=== PATIENT | female | born 1950 | race Caucasian/White ===

== ENCOUNTER 2020-05-16 17:03 | Emergency (ER) | payer MEDICARE, SELFPAY ==
--- NOTE | 2020-05-16 17:17 | XRR_ITS ---
PROCEDURE INFORMATION: Exam: XR Chest, 1 View Exam date and time: 05/16/2020 6:58 PM Age: 69 years old Clinical indication: Condition or disease; Lung condition and disease; Asthma; Severity not specified; Shortness of breath; Additional info: Asthma attack TECHNIQUE: Imaging protocol: XR of the chest Views: 1 view. COMPARISON: CR Chest 2 views* [id number] 09/29/2014 1:06 PM FINDINGS: Lungs: The lungs are hyperinflated. No focal peripheral lung consolidation, air bronchogram formation, or silhouette sign. Pleural space: No pleural effusion or pneumothorax. Heart/Mediastinum: The cardiac silhouette is not enlarged. The mediastinal contours are normal. Bones/joints: No acute osseous abnormality. Soft tissues: There is a left epicardial fat pad. XR/XR chest 1V portable [id number] IMPRESSION: No pneumonia.
[2020-05-16 17:51] VITALS: BP 152/90; PULSE 98; RESP 18; TEMP 36.3; O2SAT 100; BMI 18.3
--- NOTE | 2020-05-16 19:07 | ED_ITS ---
HPI - Asthma General: Chief Complaint: Shortness of Breath/Dyspnea Stated Complaint: asthma attack Time Seen by Provider: 05/16/20 19:07 History of Present Illness: HPI Narrative: Patient complains about to have an asthma attack earlier albuterol inhaler did help patient did go to work and then she had another attack albuterol inhaler did help again but now she is got shakiness no known present triggers MD complaint: asthma attack Onset (ago): hour(s) Severity: mild Context: none known Associated symptoms: Reports other (Shakiness); Deny chest pain, fever(s), hemoptysis, non-productive cough or productive cough Asthma History: adult onset Treatments Prior to Arrival: inhaled bronchodilator and inhaled steroid Review of Systems Const: Denies: fever(s), chills or body aches Eyes: Denies: change in vision or blurry vision ENMT: Denies: throat pain or nasal congestion Card: Denies: chest pain or dyspnea on exertion Resp: Reports: other (Asthma attack that responded to bronchodilator); Denies: dyspnea, productive cough, non-productive cough, wheezing, pain on inspiration, hemoptysis or chest congestion GI: Denies: abdominal pain, nausea or vomiting Musc: Denies: extremity pain Skin/Breast: Denies: rash Neuro: Denies: headache(s) Psych: Denies: anxiety or depression Walter/Lymph: Denies: easy bruising PFSH ED PFSH: Medical History (Updated 05/16/20 @ 19:07 by ÁLVARO Smart) Asthma Migraine Surgical History Hx of tubal ligation Family History Father , 82 Family history of premature coronary artery disease Mother , 62 Lung disease Social History (Updated 05/16/20 @ 17:55 by Devon Mendoza RN) Smoking and tobacco status: never smoked Second hand smoke exposure: No Alcohol intake: never Substance/Drug Use: never Lives independently: Yes Marital status: / Current occupational status: employed Current occupation: [employer] History of recent travel: No Current gender identity: Female Physical Exam Narrative: EXAM NARRATIVE: Does have some shakiness most likely related to the inhaled bronchodilator Const: COMMON NORMALS: no acute distress, average body habitus and patient oriented x3 HENMT: COMMON NORMALS: normocephalic HEAD & SCALP: normal to inspection and normocephalic FACE & SINUS: normal facial exam Eye: COMMON NORMALS: conjunctivae normal GENERAL EYE: appearance normal, both eyes and all related structures CONJUNCTIVA: Yes conjunctivae normal Neck/C-Spine: COMMON NORMALS: no JVD Chest: COMMONS NORMALS: normal inspection of the chest Resp: COMMON NORMALS: normal respiratory effort and clear to auscultation bilaterally AUSCULTATION: clear to auscultation bilaterally Cardio: COMMON NORMALS: no JVD, regular rate and regular rhythm RATE: regular rate RHYTHM: regular rhythm GI: COMMON NORMALS: Normal to inspection, nondistended, normoactive bowel sounds present Extremity: COMMON NORMALS: normal to inspection and full ROM Neuro: COMMON NORMALS: patient oriented x3 Course Vital Signs: Vital signs: Vital Signs Temperature 98.2 F 05/16/20 19:24 Pulse Rate 87 05/16/20 19:24 Respiratory Rate 18 05/16/20 17:51 Blood Pressure 144/72 05/16/20 19:15 Pulse Oximetry 100 05/16/20 19:24 Discharge Plan Discharge Patient Disposition: Home Clinical Impression: Asthma with exacerbation Qualifiers: Asthma severity: mild Asthma persistence: persistent Qualified Code(s): J45.31 - Mild persistent asthma with (acute) exacerbation Condition: Stable Prescriptions: New Medrol (Pipe) 4 mg tablets,dose pack See Rx Instructions .ROUTE .COMPLEX Qty: 21 RF: 0 No Action ondansetron HCl [Zofran] 4 mg tablet 4 mg PO Q4H PRN (Reason: nausea and vomiting) RF: 0 ibuprofen 800 mg tablet 800 mg PO TID RF: 0 Flovent HFA 220 mcg/actuation HFA aerosol inhaler 1 puff INHALATION BID Qty: 12 RF: 4 albuterol sulfate [ProAir HFA] 90 mcg/actuation HFA aerosol inhaler 2 puff INHALATION Q6H PRN (Reason: shortness of breath or wheezing) Qty: 8.5 RF: 3 albuterol sulfate 2.5 mg /3 mL (0.083 %) solution for nebulization 2.5 mg INHALATION Q4H PRN (Reason: shortness of breath or wheezing) Qty: 180 RF: 4 sumatriptan succinate [Imitrex] 100 mg tablet See Rx Instructions PO Q2H PRN (Reason: migraine headache) Qty: 20 RF: 4 lorazepam 1 mg tablet 1 mg PO BID PRN (Reason: anxiety) Qty: 60 RF: 0 (DME) nebulizers Misc See Rx Instructions .ROUTE .MEDSUPPLY Qty: 1 RF: 0 Discharge Orders: Discharge Order (Routine); Ordered 05/16/20 Ordered By: Hank Aguilera Referrals: Josephine De La Cruz MD [Primary Care Provider] - Discharge Diet: Usual diet Discharge Activity: Increase activity as tolerated Patient Instructions: Asthma (ED) Activity Restrictions/Additional Instructions: Follow-up with medical provider as directed. Take medications as prescribed. Return to the ER or your medical provider if condition worsens. Please read and understand discharge instructions. If any questions ask please. Use of inhalers as prescribed can use albuterol inhaler every 2 hours up to 4 puffs as needed Discharge Date/Time: 05/16/20 19:25 Coding Level of Care Code ED Nurse Staff for Diamante Fwd Exam Comprehensive
[2020-05-16 19:15] VITALS: BP 144/72; PULSE 85; TEMP 36.8; O2SAT 98
[2020-05-16] MEDS: predniSONE 20 mg Tablet PO (19:19)
[2020-05-16 19:24] VITALS: PULSE 87; TEMP 36.8; O2SAT 100
== END 2020-05-16 19:25 | disposition home or self-care (01) ==
PROVIDERS: Emergency Provider Nurse Practitioner Family; PCP Family Medicine
DX: J45.31 Mild persistent asthma with (acute) exacerbation (principal)
CPT/HCPCS: 12345; 71045; 99281; 99283; J7512

== ENCOUNTER → 2020-06-26 13:59 | Outpatient (BNVA) | payer MEDICARE, SELFPAY | PROVIDERS: PCP Family Medicine; Visit Provider Family Medicine | DX: M25.511 Pain in right shoulder (principal) | CPT/HCPCS: 73030 ==

== ENCOUNTER 2020-09-13 06:00 | Outpatient (RCR) | payer MEDICARE, SELFPAY | END 2020-10-08 23:59 | disposition home or self-care (01) | LOC: TPT 06:00 | PROVIDERS: PCP Family Medicine; Referring Provider Orthopaedic Surgery; Visit Provider Orthopaedic Surgery | DX: M25.511 Pain in right shoulder (principal) | CPT/HCPCS: 97161 ==

== ENCOUNTER → 2021-05-17 11:26 | Outpatient (BNVA) | payer MEDICARE, SELFPAY | PROVIDERS: PCP Family Medicine; Visit Provider Nurse Practitioner Family | DX: M79.631 Pain in right forearm (principal) | CPT/HCPCS: 73090 ==

== ENCOUNTER → 2021-07-25 10:08 | Outpatient (BNVA) | payer MEDICARE, SELFPAY | PROVIDERS: PCP Family Medicine; Visit Provider Nurse Practitioner Family | DX: J40 Bronchitis, not specified as acute or chronic (principal); R05.9 Cough, unspecified; R00.2 Palpitations; R53.83 Other fatigue; R53.81 Other malaise | CPT/HCPCS: 71046; 80053; 80061; 82306; 82607; 82746; 84443 ==

== ENCOUNTER → 2022-02-28 16:28 | Outpatient (BNVA) | payer MEDICARE, SELFPAY | PROVIDERS: PCP Family Medicine; Visit Provider Nurse Practitioner Family | DX: M25.552 Pain in left hip (principal); M79.605 Pain in left leg; M25.50 Pain in unspecified joint; M19.90 Unspecified osteoarthritis, unspecified site; E55.9 Vitamin D deficiency, unspecified; J45.31 Mild persistent asthma with (acute) exacerbation; R10.32 Left lower quadrant pain; F41.9 Anxiety disorder, unspecified | CPT/HCPCS: 73502; 80053 ==

== ENCOUNTER → 2022-05-06 14:26 | Outpatient (BNVA) | payer MEDICARE, SELFPAY | PROVIDERS: PCP Family Medicine; Visit Provider Specialist | DX: M16.12 Unilateral primary osteoarthritis, left hip (principal); M70.62 Trochanteric bursitis, left hip | CPT/HCPCS: 20610; 73522; 99204; J1100; J2795; J3301 ==

== ENCOUNTER → 2022-06-05 10:46 | Outpatient (BNVA) | payer MEDICARE, SELFPAY | PROVIDERS: PCP Family Medicine; Visit Provider Nurse Practitioner Family | DX: R00.2 Palpitations (principal); E55.9 Vitamin D deficiency, unspecified; J40 Bronchitis, not specified as acute or chronic; R05.9 Cough, unspecified; J45.909 Unspecified asthma, uncomplicated; J30.2 Other seasonal allergic rhinitis; F41.9 Anxiety disorder, unspecified; E78.5 Hyperlipidemia, unspecified; J44.9 Chronic obstructive pulmonary disease, unspecified; R11.0 Nausea; J32.0 Chronic maxillary sinusitis | CPT/HCPCS: 80053; 80061; 82306 ==

== ENCOUNTER 2022-06-17 13:52 | Outpatient (CLI) | payer MEDICARE, SELFPAY ==
--- NOTE | 2022-06-17 14:30 | USCV_ITS ---
Izabel Huston Age: 71 Gender: F : 1950 Exam Date: 06/17/2022 14:10 Ordering Phys: Dora Chávez NP Technologist: GUS [place] [facility] [place]: LT LEG PAIN Risk Factors: Previous Vascular Surgery: RIGHT LEFT Waveform Velocity (cm/s) Velocity (cm/s) Waveform Iliac Prox 134.1 Triphasic Iliac Mid 128.8 Triphasic Iliac Distal 140.7 Triphasic COTTON BALER 62.9 Triphasic SFA Prox 104.7 Triphasic SFA Mid 81.6 Biphasic SFA Dist 72.8 Biphasic POP 54.4 Biphasic SASH INSTALLER 29.9 Monophasic DPA 55.0 Biphasic FINDINGS Intimal thickening and minimal plaque in the femoral and iliac arteries on the left side. Patent iliac, femoral, popliteal and infrapopliteal vessels. Near normal arterial Doppler waveforms and velocities CONCLUSIONS Minimal plaques and intimal thickening in the iliac and femoral arteries on the left side Near normal Doppler waveforms and velocities. No significant arterial obstruction in the above-mentioned vessels on the left side, based on the current findings Dr Lashanda Hernandez MD FACC (Electronically Signed) Final Date: 18 June 2022 20:52 S
== END 2022-06-17 13:53 | disposition home or self-care (01) ==
PROVIDERS: PCP Family Medicine; Visit Provider Nurse Practitioner Family
DX: M79.605 Pain in left leg (principal)
CPT/HCPCS: 93926

== ENCOUNTER → 2022-07-22 10:39 | Outpatient (BNVA) | payer MEDICARE, SELFPAY | PROVIDERS: PCP Family Medicine; Referring Provider Specialist; Visit Provider Specialist | DX: R10.32 Left lower quadrant pain (principal); M79.605 Pain in left leg; M25.552 Pain in left hip | CPT/HCPCS: 95908; 95909 ==

== ENCOUNTER → 2022-07-29 13:08 | Outpatient (BNVA) | payer MEDICARE, SELFPAY | PROVIDERS: PCP Family Medicine; Visit Provider Specialist | DX: G62.9 Polyneuropathy, unspecified (principal); M25.552 Pain in left hip | CPT/HCPCS: 99213 ==

== ENCOUNTER → 2022-08-26 16:34 | Outpatient (BNVA) | payer MEDICARE, SELFPAY | PROVIDERS: PCP Family Medicine; Visit Provider Nurse Practitioner Family | DX: M79.672 Pain in left foot (principal) | CPT/HCPCS: 73630 ==

== ENCOUNTER → 2022-10-15 14:51 | Outpatient (BNVA) | payer MEDICARE, SELFPAY | PROVIDERS: PCP Family Medicine; Visit Provider Podiatrist Foot & Ankle Surgery | DX: M76.72 Peroneal tendinitis, left leg (principal) | CPT/HCPCS: 99203 ==

== ENCOUNTER → 2022-11-15 11:19 | Outpatient (BNVA) | payer MEDICARE, SELFPAY | PROVIDERS: PCP Family Medicine; Visit Provider Nurse Practitioner Family | DX: R10.9 Unspecified abdominal pain (principal); R11.0 Nausea | CPT/HCPCS: 80053 ==

== ENCOUNTER → 2022-12-16 12:17 | Outpatient (BNVA) | payer MEDICARE, SELFPAY | PROVIDERS: PCP Family Medicine; Visit Provider Podiatrist Foot & Ankle Surgery | DX: M76.72 Peroneal tendinitis, left leg (principal) | CPT/HCPCS: 99213 ==

== ENCOUNTER → 2022-12-26 15:13 | Outpatient (BNVA) | payer MEDICARE, SELFPAY | PROVIDERS: PCP Family Medicine; Referring Provider Nurse Practitioner Family; Visit Provider Physician Assistant | DX: M54.16 Radiculopathy, lumbar region (principal) | CPT/HCPCS: 72110; 99203 ==

== ENCOUNTER → 2023-01-20 11:44 | Outpatient (BNVA) | payer MEDICARE, SELFPAY | PROVIDERS: PCP Family Medicine; Visit Provider Nurse Practitioner Family | DX: R00.2 Palpitations (principal); M25.50 Pain in unspecified joint; G62.9 Polyneuropathy, unspecified; E55.9 Vitamin D deficiency, unspecified; F41.9 Anxiety disorder, unspecified; J30.2 Other seasonal allergic rhinitis; M54.16 Radiculopathy, lumbar region | CPT/HCPCS: 80053; 82306 ==

== ENCOUNTER 2023-04-01 18:09 | Emergency (ER) | payer MEDICARE, SELFPAY ==
[2023-04-01 18:50] VITALS: BP 84/51; PULSE 85; RESP 16; TEMP 36.6; O2SAT 92
[2023-04-01 18:56] VITALS: BP 108/65; PULSE 90; RESP 18; O2SAT 95
--- NOTE | 2023-04-01 18:59 | ED_ITS ---
HPI - Abdominal Pain General: Chief Complaint: Dizziness Stated Complaint: Dizzy, nausous, abdomin pain Time Seen by Provider: 04/01/23 18:50 Source: patient and family Mode of arrival: ambulatory Limitations: no limitations History of Present Illness: This patient was in her normal state of health throughout the day until sometime afternoon if she start developing abdominal cramping followed by repetitive vomiting and repetitive loose stools. She states that there is been no blood in her emesis or blood in her stools. She states she has probably had a total of 7 or 8 stools this afternoon in addition to her repetitive vomiting. She states that she had some cookies earlier in the day but there is no reason to think that they were stale or otherwise bad. She states that no one else at home is been ill. She works at [employer] but as far she knows no one in her work has been ill. She has not any recent travel or recent antibiotic use. She has never had any abdominal surgeries. She became lightheaded and dizzy in the waiting room and was transferred back to a examination room when she was noted to be relatively hypotensive. She denies any chest pain or shortness of breath. She denies any other constitutional complaints. She states that her abdominal pain feels crampy in on an intermittent basis Location: Diffuse Severity: moderate Quality: cramping Associated Symptoms: Denies chills, dysuria, fever(s), hematochezia, hematemesis and melena Review of Systems Const: Denies: fever(s) or chills Eyes: Denies: change in vision ENMT: Denies: throat pain, odynophagia or nasal congestion Card: Reports: lightheadedness; Denies: chest pain, palpitations or irregular heart rhythm Resp: Denies: dyspnea, productive cough or non-productive cough GI: Reports: abdominal pain; Denies: hematemesis, hematochezia or melena : Denies: flank pain, difficulty voiding or dysuria Musc: Denies: neck pain, back pain or extremity pain Skin/Breast: Denies: rash Neuro: Denies: headache(s), numbness in extremities or weakness in extremities PFSH ED PFSH: Medical History (Updated 04/01/23 @ 22:06 by Jong Samuel DO) Asthma Migraine Surgical History Hx of tubal ligation Family History Father , 82 Family history of premature coronary artery disease Mother , 62 Lung disease Social History Smoking and tobacco status: never smoked Second hand smoke exposure: No Alcohol intake: never Substance/Drug Use: never Lives independently: Yes Marital status: / Current occupational status: employed Current occupation: [email or web address] Current gender identity: Female Special viola needs: No Physical Exam Narrative: EXAM NARRATIVE: At the time of my initial examination she was alert and in no acute distress. She answers questions appropriately in a goal-directed fashion. Const: COMMON NORMALS: no acute distress, patient oriented x3 and alert GENERAL APPEARANCE: cooperative HENMT: COMMON NORMALS: normocephalic, Normal nasal mucous membranes and turbinates present, moist oral mucous membranes and oropharynx normal HEAD & SCALP: normocephalic FACE & SINUS: normal facial exam NOSE: Normal nasal mucous membranes and turbinates present Eye: COMMON NORMALS: Equal, round and reactive pupils present, EOMs intact bilaterally and conjunctivae normal CONJUNCTIVA: Yes conjunctivae normal PUPIL: Yes Equal, round and reactive pupils present Neck/C-Spine: COMMON NORMALS: full ROM, no lymphadenopathy and Thyroid normal THYROID: Thyroid normal Chest: COMMONS NORMALS: normal inspection of the chest Resp: COMMON NORMALS: normal respiratory effort, No retractions, No use of accessory muscles and clear to auscultation bilaterally EFFORT & INSPECTION: Yes able to speak in complete sentences AUSCULTATION: clear to auscultation bilaterally Cardio: COMMON NORMALS: regular rate, regular rhythm, No murmurs present (Cardio) and Peripheral pulses 2+ throughout RATE: regular rate RHYTHM: regular rhythm PERIPHERAL PULSES: Peripheral pulses 2+ throughout GI: COMMON NORMALS: Soft to palpation, no masses and no bruits PALPATION: Yes Soft to palpation and Yes Tenderness to palpation present (GI) : COMMON NORMALS: Yes no CVA tenderness BLADDER/KIDNEY EXAM: Yes no CVA tenderness Back/Pelvis: COMMON NORMALS: no CVA tenderness, thoracic and lumbar spine normal to inspection, no thoracic nor lumbar tenderness and straight leg raise negative bilaterally Extremity: COMMON NORMALS: normal to inspection, full ROM, capillary refill normal, no calf tenderness and no pedal edema Neuro: COMMON NORMALS: patient oriented x3, moves all extremities and no focal motor deficits SENSORIUM/ORIENTATION: Yes alert CRANIAL NERVES: Yes CN normal except as noted Psych: COMMON NORMALS: mental status grossly normal Skin: COMMON NORMALS: no rashes or lesions noted, no wounds and turgor normal GENERAL SKIN EXAM: no rashes or lesions noted and turgor normal Course Reevaluation(s): Reevaluation #1: Patient denies any more emesis. Still has some abdominal cramping. Had a c ouple of more loose stools but again no melena, blood in her stools etc. IV fluids infusing we will continue with IV fluids and get additional imaging. Laboratories are reassuring. Time: 20:12 Reevaluation #2: Patient states she continues to feel improved. Heart rate and blood pressure are very acceptable at this time. No emesis. Still having minimal cramping. I relayed current findings to she and son who is present. Because of the significant colitis noted on CT scan no concern about translocation as well as her abnormal urinalysis we will going to give her a loading dose of Unasyn which should be adequate coverage pending cultures of her urine is certainly adequate coverage for her colitis and continue on Augmentin for 5 days. We will also give her a antispasmodic and replete her potassium. Plan will be to discharge her to outpatient care and she is agreeable and supportive of that plan. Time: 22:03 Vital Signs: Vital signs: Vital Signs Temperature 97.9 F 04/01/23 18:50 Pulse Rate 90 04/01/23 20:06 Respiratory Rate 22 H 04/01/23 20:06 Blood Pressure 126/67 04/01/23 20:06 Pulse Oximetry 96 04/01/23 20:06 Oxygen Delivery Me thod Room Air 04/01/23 20:06 MDM - Abdominal Pain Medical Decision Making This patient presented to the emergency department because of abdominal pain, cramping, multiple episodes of vomiting with loose stools without blood or melena. The symptoms began sometime around 12 PM or thereafter and have contin ued. She is unaware of any exposure to infectious disease. While in the waiting room she had increasing dizziness and a near syncopal episode. Clinical examination initially revealed systolic blood pressure in the 80s. She was brought back to the main ED and evaluated and resuscitated. He had no focal findings other than diffuse abdominal tenderness. He was initially given IV fluids ancillary labs were obtained. Initial laboratories are reassuring. Additional work-up continued IV hydration and imaging were obtained. Lab Data I reviewed the patient's lab results. 04/01/23 18:30 04/01/23 18:30 Labs/Radiology: Radiology Impressions Abdomen/Pelvis CT 04/01/23 20:10 IMPRESSION: 1. Exam demonstrates findings of severe colitis from the mid transverse colon through the anorectal junction. 2. Tubular low-attenuation structure in the pancreatic uncinate process may be side branch type IPMN. There is possible pancreas divisum branching pattern. Consider non emergent pancreas protocol MR/MRCP for further evaluation. 3. Prominent sacral demineralization compared to other bony structures. Query prior radiotherapy. Laboratory Results WBC 4.76 10^3/uL (3.29-11.43) 04/01/23 18:30 RBC 4.43 10^6/uL (3.85-5.65) 04/01/23 18:30 Hgb 12.70 g/dL (11.27-16.99) 04/01/23 18:30 Hct 39.6 % (36-47) 04/01/23 18:30 MCV 89.4 fl (85-98) 04/01/23 18:30 MCH 28.7 pg (27-33) 04/01/23 18:30 MCHC 32.1 g/dL (30-55) 04/01/23 18:30 RDW 13.5 % (12.1-15.1) 04/01/23 18:30 Plt Count 238 10^3/cmm (157-399) 04/01/23 18:30 MPV 9.8 fL (7.4-10.4) 04/01/23 18:30 Neut % (Auto) 82.1 % 04/01/23 18:30 Lymph % (Auto) 10.5 % 04/01/23 18:30 [place] % (Auto) 5.3 % 04/01/23 18:30 Eos % (Auto) 1.5 % 04/01/23 18:30 Baso % (Auto) 0.4 % 04/01/23 18:30 Neut # (Auto) 3.91 10^3/uL (1.8-7.7) 04/01/23 18:30 Lymph # (Auto) 0.5 10^3/uL (0.8-4.8) L 04/01/23 18:30 [place] # (Auto) 0.3 10^3/uL (0.2-0.9) 04/01/23 18:30 Eos # (Auto) 0.1 10^3/uL (0.0-0.8) 04/01/23 18:30 Baso # (Auto) 0.0 10^3/uL (0.0-0.1) 04/01/23 18:30 Nucleated RBC % (auto) 0 % 04/01/23 18:30 Nucleated RBCs # 0.0 /100WBC 04/01/23 18:30 Sodium 138 mmol/L (136-145) 04/01/23 18:30 Potassium 3.1 mmol/L (3.5-5.1) L 04/01/23 18:30 Chloride 104 mmol/L (98-107) 04/01/23 18:30 Carbon Dioxide 20 mmol/L (22-29) L 04/01/23 18:30 Anion Gap 17.1 (5-19) 04/01/23 18:30 BUN 12 mg/dL (8-23) 04/01/23 18:30 Creatinine 1.1 mg/dL (0.5-0.9) H 04/01/23 18:30 GFR Calculation Not Reportable 04/01/23 18:30 Glucose 140 mg/dL (65-115) H 04/01/23 18:30 POC Glucose 143 mg/dL (70-110) H 04/01/23 19:28 Calculated Osmolality 288 mOsm/kg (285-295) 04/01/23 18:30 Calcium 8.6 mg/dL (8.5-10.5) 04/01/23 18:30 Total Bilirubin 0.5 mg/dL (0.15-1.2) 04/01/23 18:30 AST 37 U/L (0-32) H 04/01/23 18:30 ALT 18 U/L (0-33) 04/01/23 18:30 Alkaline Phosphatase 154 U/L (35-105) H 04/01/23 18:30 Total Protein 6.0 g/dL (6.6-8.7) L 04/01/23 18:30 Albumin 3.6 g/dL (3.5-5.2) 04/01/23 18:30 Globulin 2.4 g/dL (1.3-4.6) 04/01/23 18:30 Lipase 38 U/L (13-60) 04/01/23 18:30 Urine Color Brown (Yellow) A 04/01/23 19:53 Urine Appearance Sl hazy (CLEAR) A 04/01/23 19:53 Urine pH 5 (5-7) 04/01/23 19:53 Ur Specific [place] 1.010 (1.005-1.030) 04/01/23 19:53 Urine Protein Trace (Negative) 04/01/23 19:53 Urine Glucose (UA) Norm (Normal) 04/01/23 19:53 Urine Ketones 1+ (Negative) H 04/01/23 19:53 Urine Blood 3+ (Negative) H 04/01/23 19:53 Urine Nitrate Positive (Negative) H 04/01/23 19:53 Urine Bilirubin 2+ (Negative) H 04/01/23 19:53 Urine Urobilinogen 8 mg/dL (Negative) H 04/01/23 19:53 Ur Leukocyte Esterase 1+ (Negative) H 04/01/23 19:53 Urine RBC 0-4 /hpf (0-2) H 04/01/23 19:53 Urine WBC 5-10 /hpf (0-5) H 04/01/23 19:53 Ur Squamous Epith Cells 0-4 /hpf (0-5) H 04/01/23 19:53 Amorphous Sediment 1+ /hpf 04/01/23 19:53 Urine Bacteria 3+ /hpf (NONE) H 04/01/23 19:53 Hyaline Casts 0-4 /lpf H 04/01/23 19:53 Urine Mucus 1+ /hpf 04/01/23 19:53 EKG Data EKG 1: I personally reviewed and interpreted this EKG as follows: Interpretation: Contemporaneous review of the EKG obtained in the emergency department reveals ventricular rate of 90 bpm. Normal RI interval, normal QRS duration, normal corrected QT interval. Normal axis. Consistent with sinus rhythm. No acute ST-T wave changes or ischemic changes noted at this time Discharge Plan Discharge Patient Disposition: Home Clinical Impression: Colitis, Urinary tract infection, Hypokalemia Condition: Stable Prescriptions: New Augmentin 500-125 mg tablet 1 tab PO TID Qty: 15 0RF Levsin 0.125 mg tablet 0.125 mg PO Q6H PRN (Reason: dyspepsia) Qty: 20 0RF No Action (DME) nebulizers Misc See Rx Instructions .ROUTE .MEDSUPPLY Qty: 1 0RF Rx Instructions: As directed sumatriptan succinate [Imitrex] 100 mg tablet See Rx Instructions PO .COMPLEX Qty: 20 3RF Rx Instructions: take 1 tab at onset of headache; if no relief, may repeat 1 tab after at least 2 hrs; max = 2 tabs/24 hrs PO ondansetron HCl 4 mg tablet 4 mg PO Q6H PRN (Reason: nausea and vomiting) Qty: 60 0RF albuterol sulfate [ProAir HFA] 90 mcg/actuation HFA aerosol inhaler 2 puff INHALATION Q6H PRN (Reason: shortness of breath or wheezing) Qty: 8.5 3RF Advair HFA 230-21 mcg/actuation HFA aerosol inhaler 2 puff INHALATION BID Qty: 12 3RF alprazolam 0.25 mg tablet 0.25 mg PO BID PRN (Reason: anxiety) Qty: 60 1RF cholecalciferol (vitamin D3) 50 mcg (2,000 unit) capsule 50 mcg PO DAILY 90 Days Qty: 90 0RF ibuprofen 800 mg tablet 800 mg PO Q8H PRN (Reason: pain) Qty: 90 1RF ipratropium-albuterol 0.5 mg-3 mg(2.5 mg base)/3 mL solution for nebulization 3 ml inhalation Q4H PRN (Reason: wheezing) Qty: 180 3RF meloxicam 15 mg tablet 15 mg PO DAILY Qty: 30 0RF gabapentin 100 mg capsule 100 mg PO .QHS Qty: 30 2RF levocetirizine [Xyzal] 5 mg tablet 5 mg PO DAILY 90 Days Qty: 90 1RF montelukast 10 mg tablet 10 mg PO DAILY Qty: 30 4RF Discharge Orders: Discharge ED (Routine); Ordered 04/01/23 Ordered By: Jong Samuel Referrals: Dora Chávez NP [Primary Care Provider] - 7-10 days (Needs an outpatient non- emergent MRCP (see CT from the ED visit)) Discharge Diet: Advance as tolerated Discharge Activity: Increase activity as tolerated Patient Instructions: Opioid Safety, Pain Management Activity Restrictions/Additional Instructions: As we discussed while you are in the emergency department you have evidence of inflammation of your colon wall. Because of the concern about this creating a worsening infection we have started you on antibiotics which in addition should treat the urinary tract infection that we discovered while you were here as well. We have also provided a medicine to help with your spasms and cramping of your GI tract. We recommend drinking sports drinks such as Gatorade or Powerade to help keep your electrolytes in the normal range. We recommend starting back on a low residue diet with easy to digest foods such as carbohydrates etc. Avoid milk products until you are completely back to normal. We also recommend following up with your primary care clinic in the next 7 to 10 days to discuss additional tests which are recommended on a nonemergent basis to evaluate your pancreas. Coding Level of Care Code ED Toll Gate Keeper for Diamante Trinidad
[2023-04-01 19:07] LABS: Basophils % 0.4 %; Eosinophils # 0.1 10^3/uL (0.0-0.8); Eosinophils % 1.5 %; Hematocrit 39.6 % (36-47); Lymphocytes # 0.5 10^3/uL (0.8-4.8); Lymphocytes % 10.5 %; Mean Corpuscular HGB Conc 32.1 g/dL (30-55); Mean Corpuscular Hemoglobin 28.7 pg (27-33); Mean Corpuscular Volume 89.4 fl (85-98); Mean Platelet Volume 9.8 fL (7.4-10.4); Monocytes # 0.3 10^3/uL (0.2-0.9); Monocytes % 5.3 %; Neutrophils # 3.91 10^3/uL (1.8-7.7); Neutrophils % 82.1 %; Nucleated Red Blood Cells % 0 %; Platelet Count 238 10^3/cmm (157-399); Red Blood Count 4.43 10^6/uL (3.85-5.65); Red Cell Distribution Width 13.5 % (12.1-15.1); White Blood Count 4.76 10^3/uL (3.29-11.43)
[2023-04-01] MEDS: ondansetron 2 mg/ML SDV 2 mL 4 MG IVP (19:16)
[2023-04-01] MEDS: lactated ringers 1,000 ML 999 ML IV ×3 (19:18→21:40)
[2023-04-01 19:20] VITALS: BP 110/57; PULSE 80; RESP 19; O2SAT 96
[2023-04-01 19:30] VITALS: BP 126/67; PULSE 83; RESP 96; O2SAT 96
[2023-04-01 19:35] LABS: Glucose Point of Care 143 mg/dL (70-110)
[2023-04-01 19:41] LABS: Alanine Aminotransferase 18 U/L (0-33); Albumin Level 3.6 g/dL (3.5-5.2); Alkaline Phosphatase 154 U/L (35-105); Anion Gap 17.1 (5-19); Aspartate Amino Transferase 37 U/L (0-32); Blood Urea Nitrogen 12 mg/dL (8-23); Calcium 8.6 mg/dL (8.5-10.5); Carbon Dioxide 20 mmol/L (22-29); Chloride 104 mmol/L (98-107); Globulin 2.4 g/dL (1.3-4.6); Glucose 140 mg/dL (65-115); Lipase 38 U/L (13-60); Osmolality Calculated 288 mOsm/kg (285-295); Potassium 3.1 mmol/L (3.5-5.1); Sodium 138 mmol/L (136-145); Total Bilirubin 0.5 mg/dL (0.15-1.2)
[2023-04-01 20:06] VITALS: BP 126/67; PULSE 90; RESP 22; O2SAT 96
--- NOTE | 2023-04-01 20:10 | ECG_ITS ---
[facility] Test Date: 2023-04-01 Pat Name: Izabel Huston Department: Room: Gender: Female Patient Advocate: : 1950 Requested By: Jong Samuel Order Number: [id number] Diego MD: Lashanda Hernandez M.D. Measurements Intervals [place] Rate: 90 P: 53 ID: [id number] QRS: 35 QRSD: 90 T: 14 QT: 344 QTc: 422 Interpretive Statements SINUS RHYTHM Compared to ECG 01/16/2018 14:37:01 No significant changes Electronically Signed On 04-02-2023 20:01:33 CDT by Lashanda Hernandez M.D. [id number]
--- NOTE | 2023-04-01 20:10 | CTR_ITS ---
PROCEDURE INFORMATION: Exam: CT Abdomen And Pelvis With Contrast Exam date and time: 04/01/2023 8:25 PM Age: 72 years old Clinical indication: Abdominal pain; Generalized; Prior surgery; Surgery date: 6+ months; Surgery type: Tubal; Additional info: Abd pain and near syncope TECHNIQUE: Imaging protocol: Computed tomography of the abdomen and pelvis with contrast. Radiation optimization: All CT scans at this facility use at least one of these dose optimization techniques: automated exposure control; mA and/or kV adjustment per patient size (includes targeted exams where dose is matched to clinical indication); or iterative reconstruction. Contrast material: OMNI 350; Contrast volume: 100 ml; Contrast route: INTRAVENOUS (IV); REPORTING DATA: Count of CT and Cardiac NM exams in prior 12 months: This patient has received 0 known CTs and 0 known cardiac nuclear medicine studies in the 12 months prior to the current study. COMPARISON: CR XR hip BI 3-4V wo/w pel [id number] 05/06/2022 2:25 PM RADIATION DOSE METRICS: Total DLP (mGy-cm): 353.33 FINDINGS: Lungs: Clear basilar lung parenchyma. Pleural spaces: No pleural fluid. Heart: Normal heart size. Diaphragm: Small sliding hiatal hernia. Liver: Normal configuration. Homogeneous parenchyma. Gallbladder and bile ducts: No regional inflammation. No calcified stones. No ductal dilation. Pancreas: There is a tubular low density structure in the pancreatic uncinate process. Possible pancreas divisum anatomy. Spleen: Normal. No splenomegaly. Adrenal glands: Normal configuration. Kidneys and ureters: No evidence of obstruction. No visible inflammation. Stomach and bowel: Periampullary duodenal diverticulum, otherwise normal small bowel. Decompressed stomach. There is severe colonic mural thickening with mucosal enhancement and paracolic edema extending from the mid transverse colon through the anorectal junction compatible with colitis. No bowel wall pneumatosis or portal venous gas. Appendix: Normal appendix is confirmed. Intraperitoneal space: See Stomach and bowel finding. Vasculature: Patent portal vein. Mild aortoiliac calcific atherosclerosis without aneurysm. Lymph nodes: No enlarged lymph nodes. Urinary bladder: Unremarkable as visualized. Reproductive: Atrophic uterus as expected. No adnexal masses. Bones/joints: Prominent sacral demineralization compared to other skeletal structures, etiology unclear. Spinal canal is patent. No discrete destructive bony lesions. Soft tissues: Unremarkable. CT/CT abdomen pelvis w con* [id number] IMPRESSION: 1. Exam demonstrates findings of severe colitis from the mid transverse colon through the anorectal junction. 2. Tubular low-attenuation structure in the pancreatic uncinate process may be side branch type IPMN. There is possible pancreas divisum branching pattern. Consider non emergent pancreas protocol MR/MRCP for further evaluation. 3. Prominent sacral demineralization compared to other bony structures. Query prior radiotherapy.
[2023-04-01 20:18] LABS: Blood Urine 3+ (Negative); Glucose Urine UA Norm (Normal); Ketones Urine 1+ (Negative); Nitrate Urine Positive (Negative); Protein Urine Trace (Negative); Urine Appearance SL Hazy (CLEAR); Urine Color Brown (Yellow); pH Urine 5 (5-7)
[2023-04-01 20:19] LABS: Add Urine Microscopic? YES; Bilirubin Urine 2+ (Negative); Leukocyte Esterase Urine 1+ (Negative); Urobilinogen Urine 8 mg/dL (Negative)
[2023-04-01 20:20] LABS: Add Urine Culture? Yes; Amorphous Sediment Urine 1+ /hpf; Bacteria Urine 3+ /hpf; Hyaline Casts Urine 0-4 /lpf; Mucus Urine 1+ /hpf; RBC Urine 0-4 /hpf (0-2); Squamous Epithelial Cell Urine 0-4 /hpf (0-5)
[2023-04-01] MEDS: iohexol 350 mg/mL 500 mL Btl (per mL) IV (20:34)
[2023-04-01] MEDS: ampicillin-sulbactam 3 GM in sodium chloride 0.9% (plus) 50 ML IV (22:19)
[2023-04-01] MEDS: potassium bicarb 25 mEq Tablet 50 MEQ PO (22:20)
[2023-04-01] MEDS: hyoscyamine ODT 0.125 mg Tablet 0.25 MG PO (22:56)
[2023-04-01 23:54] VITALS: BP 126/67; PULSE 105; RESP 17; O2SAT 96
== END 2023-04-01 23:57 | disposition home or self-care (01) ==
PROVIDERS: Emergency Medicine; Emergency Provider Emergency Medicine; PCP Nurse Practitioner Family
DX: K52.9 Noninfective gastroenteritis and colitis, unspecified (principal); N39.0 Urinary tract infection, site not specified; E87.6 Hypokalemia
CPT/HCPCS: 36416; 74177; 80053; 81001; 82962; 83690; 85025; 87077; 87086; 87186; 93005; 96361; 96365; 96375; 99285; J0295; J2405; J7120; Q9967

== ENCOUNTER → 2023-05-13 09:19 | Outpatient (BNVA) | payer MEDICARE, SELFPAY | PROVIDERS: PCP Nurse Practitioner Family; Visit Provider Surgery | DX: Z12.11 Encounter for screening for malignant neoplasm of colon (principal) | CPT/HCPCS: 99024; 99203 ==

== ENCOUNTER 2023-06-20 07:36 | Day surgery (SDC) | payer MEDICARE, SELFPAY ==
[2023-06-20] MEDS: sodium chloride 0.9% 1,000 ML 30 ML IV (07:48)
[2023-06-20 07:56] VITALS: BMI 20.7
[2023-06-20 08:00] VITALS: BP 164/79; PULSE 101; RESP 18; TEMP 36.6; O2SAT 98
--- NOTE | 2023-06-20 08:02 | P.ANESASSM_ITS ---
Pre-Anesthetic Assessment Height/Weight: Height 1.55 m Weight 49.895 kg Temp Pulse Resp BP Pulse Ox 97.9 F 101 H 18 164/79 98 06/20/23 08:00 06/20/23 08:00 06/20/23 08:00 06/20/23 08:00 06/20/23 08:00 Preop Diagnosis: Screening Operation Date: 06/20/23 08:30 Proposed Procedures p [id number] colon G0121 screen colon A risk Z12.11(Not Applicable) - Delio Romo DO Familial anesthetic complications: None Was Beta Jacqui taken within 24 hours: N/A Was Clonidine taken within 24 hours: N/A Last intake: Intake Last Liquid Date 06/19/23 Last Liquid Time 22:30 Last Solid Date 06/18/23 Social No alcohol and No tobacco Exam alert, oriented x 3, clear to auscultation bilaterally and regular rate & rhythm Airway Submandibular: within normal limits Cervical ROM: within normal limits Mallampati: Class II Dentition: partials History/ROS No significant history except as noted and No significant complaints Pulmonary Asthma and Exertional Dyspnea CV/HEM None reported None reported Hepatic Hepatitis (As a kid, no issues since) GI Gastroesophageal Reflux Disease (Sometimes, none this morning) and Peptic Ulcer Disease Metabolic None reported Musc/skel Osteoarthritis/DJD Neuropsych Anxiety and Headache Anesthetic Plan ASA status: 2 Anesthesia: Anesthesia Evaluation, General and MAC Risk of > 500 ml blood loss (7ml/kg in children): No Medications/Allergies Home Medications Medication Instructions Recorded Confirmed Last Taken Type nebulizers #1 ea 01/10/20 05/13/23 Unknown Rx sumatriptan succinate 100 mg See Rx Instructions PO .COMPLEX 03/26/21 06/20/23 06/18/23 Rx tablet (Imitrex) #20 tabs ondansetron HCl 4 mg tablet 4 mg PO Q6H PRN nausea and 11/15/22 06/20/23 06/18/23 Rx vomiting #60 tabs albuterol sulfate 90 mcg/actuation 2 puff inhalation Q6H PRN 12/09/22 06/19/23 06/19/23 Rx aerosol inhaler (ProAir HFA) shortness of breath or wheezing #8.5 grams ibuprofen 800 mg tablet 800 mg PO Q8H PRN pain #90 tabs 01/20/23 06/20/2306/13/23 Rx alprazolam 0.25 mg tablet 0.25 mg PO BID PRN anxiety #60 tabs 04/17/23 06/19/23 06/18/23 Rx cholecalciferol (vitamin D3) 50 50 mcg PO DAILY 90 days #90 caps 04/17/23 06/20/23 06/18/23 Rx mcg (2,000 unit) capsule fluticasone fur. 200 mcg-umeclid 1 inh inhalation DAILY 30 days #60 04/17/23 06/20/23 06/20/23 Rx 62.5 mcg-vilant 25 mcg ea inhalat.powder (Trelegy Ellipta) gabapentin 100 mg capsule 100 mg PO .QHS #30 caps 04/17/23 06/19/23 06/18/23 Rx levocetirizine 5 mg tablet (Xyzal) 5 mg PO DAILY 90 days #90 tabs 04/17/23 06/19/23 06/18/23 Rx montelukast 10 mg tablet 10 mg PO DAILY #30 tabs 04/17/23 06/19/23 06/18/23 Rx Allergies Allergy/AdvReac Type Severity Reaction Status Date / Time No Known Allergies Allergy Verified 06/20/23 07:52 Current Medications Generic Name Dose Route Start Last Admin Trade Name Freq PRN Reason Stop Dose Admin Sodium Chloride 1,000 mls @ 30 mls/hr 06/20/23 07:45 06/20/23 07:48 Sodium Chloride 0.9% IV 06/21/23 07:44 30 mls/hr .Q24H BOB Administration PFSH Anesthesia Medical History Asthma Migraine Surgical History Hx of tubal ligation Family History Father , 82 Family history of premature coronary artery disease Mother , 62 Lung disease Social History Smoking and tobacco/nicotine status: never used tobacco/nicotine Second hand smoke exposure: No Alcohol intake: never Substance/Drug Use: never Lives independently: Yes Marital status: / Current occupational status: employed Current occupation: [employer] Current gender identity: Female Special viola needs: No Data Anesthesia Cardiac Studies: No Data to Display
--- NOTE | 2023-06-20 08:15 | PM.HP ---
Providers/Chief Complaint Primary Care Provider: Dora Chávez NP Chief Complaint: Z12.11 History of Present Illness Izabel Huston is a 72 year old female Review of Systems General: Reports: 10 or more systems reviewed and unremarkable except in HPI and below Medications/Allergies Home Medications Medication Instructions Recorded Confirmed Last Taken Type nebulizers #1 ea 01/10/20 05/13/23 Unknown Rx sumatriptan succinate 100 mg See Rx Instructions PO .COMPLEX 03/26/21 06/20/23 06/18/23 Rx tablet (Imitrex) #20 tabs ondansetron HCl 4 mg tablet 4 mg PO Q6H PRN nausea and 11/15/22 06/20/23 06/18/23 Rx vomiting #60 tabs albuterol sulfate 90 mcg/actuation 2 puff inhalation Q6H PRN 12/09/22 06/19/23 06/19/23 Rx aerosol inhaler (ProAir HFA) shortness of breath or wheezing #8.5 grams ibuprofen 800 mg tablet 800 mg PO Q8H PRN pain #90 tabs 01/20/23 06/20/23 06/13/23 Rx alprazolam 0.25 mg tablet 0.25 mg PO BID PRN anxiety #60 tabs 04/17/23 06/19/23 06/18/23 Rx cholecalciferol (vitamin D3) 50 50 mcg PO DAILY 90 days #90 caps 04/17/23 06/20/23 06/18/23 Rx mcg (2,000 unit) capsule fluticasone fur. 200 mcg-umeclid 1 inh inhalation DAILY 30 days #60 04/17/23 06/20/23 06/20/23 Rx 62.5 mcg-vilant 25 mcg ea inhalat.powder (Trelegy Ellipta) gabapentin 100 mg capsule 100 mg PO .QHS #30 caps 04/17/23 06/19/23 06/18/23 Rx levocetirizine 5 mg tablet (Xyzal) 5 mg PO DAILY 90 days #90 tabs 04/17/23 06/19/23 06/18/23 Rx montelukast 10 mg tablet 10 mg PO DAILY #30 tabs 04/17/23 06/19/23 06/18/23 Rx Allergies Allergy/AdvReac Type Severity Reaction Status Date / Time No Known Allergies Allergy Verified 06/20/23 07:52 PFSH Acute PFSH: Medical History Asthma Migraine Surgical History Hx of tubal ligation Family History Father , 82 Family history of premature coronary artery disease Mother , 62 Lung disease Social History Smoking and tobacco/nicotine status: never used tobacco/nicotine Second hand smoke exposure: No Alcohol intake: never Substance/Drug Use: never Lives independently: Yes Marital status: / Current occupational status: employed Current occupation: [employer] Current gender identity: Female Special viola needs: No Vitals/I&O/Wt Last Vital Signs Temp 97.9 F 06/20/23 08:00 Pulse 101 H 06/20/23 08:00 Resp 18 06/20/23 08:00 BP 164/79 06/20/23 08:00 Pulse Ox 98 06/20/23 08:00 Weight last 48 hrs Weight 110 lb A&P Assessment and plan (1) Colon cancer screening: Plan Colonoscopy Attestations Medical Necessity Statement*: Home Coding Level of Care Code Acute Code for Chg Fwd Diagnoses Colon cancer screening Z12.11
[2023-06-20 08:35] VITALS: BP 103/52; PULSE 72; RESP 14; TEMP 36.2; O2SAT 97
[2023-06-20 08:50] VITALS: BP 100/58; PULSE 75; RESP 18; O2SAT 99
--- NOTE | 2023-06-20 12:44 | ANE.PACU2 ---
Inpatient post-anesthesia follow up: Airway intact: Yes Vital signs: Temperature 97.1 F Pulse Rate 75 Respiratory Rate 18 Blood Pressure 100/58 Pulse Oximetry 99 Oxygen Delivery Me thod Room Air Oxygen Flow Rate Fraction of Inspir ed Oxygen Hydration adequate: Yes Nausea and vomiting: No Pain level: 2 Mental status: Baseline
== END 2023-06-20 09:07 | disposition home or self-care (01) ==
PROVIDERS: PCP Nurse Practitioner Family; Visit Provider Surgery
PROC: 0DJD8ZZ Inspection of Lower Intestinal Tract, Via Natural or Artificial Opening Endoscopic (ICD-10-PCS; CPT 45378; principal; 2023-06-20 08:30)
DX: Z12.11 Encounter for screening for malignant neoplasm of colon (principal); K57.30 Diverticulosis of large intestine without perforation or abscess without bleeding; K21.9 Gastro-esophageal reflux disease without esophagitis; Z87.11 Personal history of peptic ulcer disease
CPT/HCPCS: G0121; J2704; J7030

== ENCOUNTER → 2023-08-21 11:30 | Outpatient (BNVA) | payer MEDICARE, SELFPAY | PROVIDERS: PCP Nurse Practitioner Family; Visit Provider Nurse Practitioner Family | DX: J44.9 Chronic obstructive pulmonary disease, unspecified (principal); E55.9 Vitamin D deficiency, unspecified; R00.2 Palpitations; F41.9 Anxiety disorder, unspecified; R53.83 Other fatigue; M54.16 Radiculopathy, lumbar region; J30.2 Other seasonal allergic rhinitis | CPT/HCPCS: 80053; 82306; 84443 ==

== ENCOUNTER → 2023-11-05 09:58 | Outpatient (BNVA) | payer MEDICARE, SELFPAY | PROVIDERS: PCP Nurse Practitioner Family; Visit Provider Specialist | DX: M77.11 Lateral epicondylitis, right elbow; Z46.89 Encounter for fitting and adjustment of other specified devices | CPT/HCPCS: 20605; 20610; 73080; 97760; 99203; J1100; J2795; J3301; L3908 ==

== ENCOUNTER 2023-11-05 11:32 | Outpatient (CLI) | payer MEDICARE, SELFPAY | END 2023-11-05 11:33 | disposition home or self-care (01) | LOC: SPT 11:33 | PROVIDERS: PCP Nurse Practitioner Family; Visit Provider Specialist | DX: Z46.89 Encounter for fitting and adjustment of other specified devices (principal); M77.11 Lateral epicondylitis, right elbow | CPT/HCPCS: 20610; 97760; 99203; J1100; J2795; J3301; L3908 ==

== ENCOUNTER → 2024-02-18 13:30 | Outpatient (BNVA) | payer MEDICARE, SELFPAY | PROVIDERS: PCP Nurse Practitioner Family; Visit Provider Specialist | DX: M77.11 Lateral epicondylitis, right elbow (principal) | CPT/HCPCS: 99213 ==

== ENCOUNTER → 2024-03-29 11:51 | Outpatient (BNVA) | payer MEDICARE, SELFPAY | PROVIDERS: PCP Nurse Practitioner Family; Visit Provider Nurse Practitioner Family | DX: E55.9 Vitamin D deficiency, unspecified (principal); F41.9 Anxiety disorder, unspecified | CPT/HCPCS: 80053; 82306; 84443; 85025 ==

== ENCOUNTER → 2024-06-10 13:33 | Outpatient (BNVA) | payer MEDICARE, SELFPAY | PROVIDERS: PCP Nurse Practitioner Family; Referring Provider Nurse Practitioner Family; Visit Provider Nurse Practitioner Family | DX: B07.8 Other viral warts (principal); L81.4 Other melanin hyperpigmentation; L82.1 Other seborrheic keratosis | CPT/HCPCS: 17110; 99203 ==

== ENCOUNTER → 2024-07-15 13:46 | Outpatient (BNVA) | payer MEDICARE, SELFPAY | PROVIDERS: PCP Nurse Practitioner Family; Visit Provider Nurse Practitioner Family | DX: L81.4 Other melanin hyperpigmentation (principal); B07.8 Other viral warts; L53.8 Other specified erythematous conditions; L29.89 Other pruritus | CPT/HCPCS: 17110; 99213 ==

== ENCOUNTER → 2024-09-15 12:19 | Outpatient (BNVA) | payer MEDICARE, SELFPAY | PROVIDERS: Visit Provider Family Medicine | DX: R05.9 Cough, unspecified (principal) | CPT/HCPCS: 87400 ==

== ENCOUNTER 2024-11-08 15:30 | Emergency (ER) | payer MEDICARE, SELFPAY ==
[2024-11-08 15:32] VITALS: BP 133/73; PULSE 87; RESP 18; TEMP 36.3; O2SAT 100; BMI 19.8
--- NOTE | 2024-11-08 15:38 | XRR_ITS ---
PROCEDURE INFORMATION: Exam: XR Chest Exam date and time: 11/08/2024 3:40 PM Age: 74 years old Clinical indication: Other: Near syncope TECHNIQUE: Imaging protocol: Radiologic exam of the chest. Views: 1 view. COMPARISON: CR XR chest 2V* [id number] 07/25/2021 10:15 AM FINDINGS: Lungs: Unremarkable. No consolidation or mass. Pleural spaces: Unremarkable. No pleural effusion. No pneumothorax. Heart/Mediastinum: Unremarkable. No cardiomegaly. Bones/joints: Unremarkable. XR/XR chest 1V portable [id number] IMPRESSION: No acute findings.
--- NOTE | 2024-11-08 15:38 | ECG_ITS ---
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
--- NOTE | 2024-11-08 15:39 | ED_ITS ---
HPI - Syncope 2 General: Chief Complaint: Syncope Stated Complaint: dizziness Time Seen by Provider: 11/08/24 15:34 Source: patient Mode of arrival: ambulatory Limitations: no limitations History of Present Illness: 74-year-old female states that she is at work today and had a near syncopal event. She states she has had this happen before states she was standing started to feel lightheaded and diaphoretic and states she did sit down almost passed out but did not states she feels much better currently she denies any vertigo she denies any headache or chest pain. No vomiting Associated symptoms: Deny abdominal pain, chest pain, fever(s), headache(s) or nausea Related Data Home Medications ?Medication ?Instructions ?Recorded ?Confirmed albuterol sulfate 90 mcg/actuation 2 puff inhalation Q 6H PRN 11/08/24 11/08/24 aerosol inhaler Shortness Of Breath Or Wheez ing cholecalciferol (vitamin D3) 125 125 mcg PO DAILY 10/1111/08/24 mcg (5,000 unit) tablet (Vitamin D3) ibuprofen 200 mg tablet (Advil) 800 mg PO Q6H PRN Feve r Or Pain 11/08/24 11/08/24 magnesium 250 mg tablet 250 mg PO DAILY 11/08/24 multivitamin 1 tab PO DAILY 11/08/2410/11 Previous Rx's ?Medication ?Instructions ?Recorded gabapentin 100 mg capsule 100 mg PO .QHS #30 caps 03/11 05/04 montelukast 10 mg tablet 10 mg PO DAILY #30 tabs 03/11 05/04 Allergies Allergy/AdvReac Type Severity Reaction Status Date / Time No Known Allergies Allergy Verified 09/15/24 12:10 Review of Systems 2 Const: Denies: fever(s), chills, body aches or change in appetite ENMT: Denies: throat pain or dental pain Card: Reports: syncope; Denies: chest pain Resp: Denies: dyspnea GI: Denies: abdominal pain, nausea, vomiting or diarrhea Musc: Denies: neck pain or back pain Skin/Breast: Denies: rash Neuro: Denies: headache(s) PFSH ED 2 PFSH: Medical History Cellulitis of hand, right Poisoning by wasp sting Maxillary sinusitis Asthma Migraine Surgical History Hx of tubal ligation Family History Father , 82 Family history of premature coronary artery disease Mother , 62 Lung disease Social History Smoking and tobacco/nicotine status: never used tobacco/nicotine Second hand smoke exposure: No Alcohol intake: never Substance/Drug Use: never Lives independently: Yes Marital status: / Current occupational status: employed Current occupation: [employer] Current gender identity: Female Special viola needs: No Physical Exam 2 Const: COMMON NORMALS: no acute distress, patient oriented x3 and healthy appearing HENMT: COMMON NORMALS: normocephalic and atraumatic HEAD & SCALP: n ormocephalic and atraumatic Eye: COMMON NORMALS: conjunctivae normal CONJUNCTIVA: Yes conjunctivae normal Neck/C-Spine: COMMON NORMALS: full ROM and supple Chest: COMMONS NORMALS: normal inspection of the chest Resp: COMMON NORMALS: normal respiratory effort, No retractions, No use of accessory muscles and clear to auscultation bilaterally AUSCULTATION: clear to auscultation bilaterally Cardio: COMMON NORMALS: regular rate, regular rhythm and No murmurs present (Cardio) RATE: regular rate RHYTHM: regular rhythm GI: COMMON NORMALS: Normal to inspection, nondistended, normoactive bowel sounds present, Soft to palpation, non-tender and no masses PALPATION: Yes Soft to palpation Extremity: COMMON NORMALS: normal to inspection and full ROM Neuro: COMMON NORMALS: patient oriented x3, moves all extremities and no focal motor deficits SPEECH: speech normal MOTOR EXAM: 5/5 motor strength present throughout Psych: COMMON NORMALS: mental status grossly normal, Normal thought process present and cooperative THOUGHT PROCESS: Normal thought process present Skin: COMMON NORMALS: no rashes or lesions noted and no wounds GENERAL SKIN EXAM: no rashes or lesions noted Course 2 Vital Signs: Vital signs: Vital Signs Temperature 97.3 F L 11/08/24 15:32 Pulse Rate 87 11/08/24 15:32 Respiratory Rate 18 11/08/24 15:32 Blood Pressure 133/73 11/08/24 15:32 Pulse Oximetry 100 11/08/24 15:32 Oxygen Delivery Me thod Room Air 11/08/24 15:32 MDM - Syncope Medical Decision Making Patient presents here after a near syncopal event she has been well-appearing here blood pressures have been normal blood works normal she had no chest pain headache she is stable for discharge follow-up with PCP return if worsening. Medical Records I reviewed the patient's medical records. Lab Data I reviewed the patient's lab results. 11/08/24 16:22 11/08/24 16:22 Radiology Impressions Chest X-Ray 11/08/24 15:38 IMPRESSION: No acute findings. Laboratory Results WBC 7.07 10^3/uL (3.29-11.43) 11/08/24 16:22 RBC 3.95 10^6/uL (3.85-5.65) 11/08/24 16:22 Hgb 11.90 g/dL (11.27-16.99) 11/08/24 16:22 Hct 37.0 % (36-47) 11/08/24 16:22 MCV 93.7 fl (85-98) 11/08/24 16:22 MCH 30.1 pg (27-33) 11/08/24 16:22 MCHC 32.2 g/dL (30-55) 11/08/24 16:22 RDW 14.6 % (12.1-15.1) 11/08/24 16:22 Plt Count 267 10^3/cmm (157-399) 11/08/24 16:22 MPV 9.6 fL (7.4-10.4) 11/08/24 16:22 Neut % (Auto) 76.6 % 11/08/24 16:22 Lymph % (Auto) 13.7 % 11/08/24 16:22 Mccormick % (Auto) 6.5 % 11/08/24 16:22 Eos % (Auto) 1.7 % 11/08/24 16:22 Baso % (Auto) 1.1 % 11/08/24 16:22 Neut # (Auto) 5.41 10^3/uL (1.8-7.7) 11/08/24 16:22 Lymph # (Auto) 1.0 10^3/uL (0.8-4.8) 11/08/24 16:22 Mccormick # (Auto) 0.5 10^3/uL (0.2-0.9) 11/08/24 16:22 Eos # (Auto) 0.1 10^3/uL (0.0-0.8) 11/08/24 16:22 Baso # (Auto) 0.1 10^3/uL (0.0-0.1) 11/08/24 16:22 Nucleated RBC % (auto) 0 % 11/08/24 16:22 Nucleated RBCs # 0.0 /100WBC 11/08/24 16:22 Sodium 140 mmol/L (136-145) 11/08/24 16:22 Potassium 3.5 mmol/L (3.5-5.1) 11/08/24 16:22 Chloride 105 mmol/L (98-107) 11/08/24 16:22 Carbon Dioxide 23 mmol/L (22-29) 11/08/24 16:22 Anion Gap 15.5 (5-19) 11/08/24 16:22 BUN 17 mg/dL (8-23) 11/08/24 16:22 Creatinine 0.7 mg/dL (0.5-0.9) 11/08/24 16:22 GFR Calculation Not Reportable 11/08/24 16:22 Glucose 136 mg/dL (65-115) H 11/08/24 16:22 Calculated Osmolality 294 mOsm/kg (285-295) 11/08/24 16:22 Calcium 8.9 mg/dL (8.5-10.5) 11/08/24 16:22 Total Bilirubin 0.5 mg/dL (0.15-1.2) 11/08/24 16:22 AST 48 U/L (0-32) H 11/08/24 16:22 ALT 61 U/L (0-33) H 11/08/24 16:22 Alkaline Phosphatase 435 U/L (35-105) H 11/08/24 16:22 Total Protein 6.4 g/dL (6.6-8.7) L 11/08/24 16:22 Albumin 4.0 g/dL (3.5-5.2) 11/08/24 16:22 Globulin 2.4 g/dL (1.3-4.6) 11/08/24 16:22 TSH 2.41 uIU/mL (0.27-4.20) 11/08/24 16:22 All radiology interpretation(s) finalized by discharge EKG Data EKG 1: I personally reviewed and interpreted this EKG as follows: EKG interpretation date: 11/08/24 EKG interpretation time: 15:56 Interpretation: nsr hr [address] elevation qrs 85 qtc 418 Discharge Plan Discharge Patient Disposition: Home Clinical Impression: Syncope Condition: Stable Prescriptions: No Action gabapentin 100 mg capsule 100 mg PO .QHS Qty: 30 4RF montelukast 10 mg tablet 10 mg PO DAILY Qty: 30 4RF multivitamin Tablet 1 tab PO DAILY ibuprofen [Advil] 200 mg Tablet 800 mg PO Q6H PRN (Reason: Fever Or Pain) magnesium 250 mg Tablet 250 mg PO DAILY cholecalciferol (vitamin D3) [Vitamin D3] 125 mcg (5,000 unit) Tablet 125 mcg PO DAILY albuterol sulfate 90 mcg/actuation HFA aerosol inhaler 2 puff INHALATION Q6H PRN (Reason: Shortness Of Breath Or Wheezing) Discharge Orders: Discharge ED (Routine); Ordered 11/08/24 Ordered By: Macario Weir Discharge Diet: Advance as tolerated Discharge Activity: Resume usual activity Patient Instructions: Syncope (ED) Print Language: Egyptian Coding Level of Care Code ED Records Analysis Manager for [facility]
[2024-11-08 16:31] LABS: Basophils # 0.1 10^3/uL (0.0-0.1); Basophils % 1.1 %; Eosinophils # 0.1 10^3/uL (0.0-0.8); Eosinophils % 1.7 %; Lymphocytes % 13.7 %; Mean Corpuscular HGB Conc 32.2 g/dL (30-55); Mean Corpuscular Hemoglobin 30.1 pg (27-33); Mean Corpuscular Volume 93.7 fl (85-98); Mean Platelet Volume 9.6 fL (7.4-10.4); Monocytes # 0.5 10^3/uL (0.2-0.9); Monocytes % 6.5 %; Neutrophils # 5.41 10^3/uL (1.8-7.7); Neutrophils % 76.6 %; Nucleated Red Blood Cells % 0 %; Platelet Count 267 10^3/cmm (157-399); Red Blood Count 3.95 10^6/uL (3.85-5.65); Red Cell Distribution Width 14.6 % (12.1-15.1); White Blood Count 7.07 10^3/uL (3.29-11.43)
[2024-11-08 16:59] LABS: Alanine Aminotransferase 61 U/L (0-33); Alkaline Phosphatase 435 U/L (35-105); Anion Gap 15.5 (5-19); Aspartate Amino Transferase 48 U/L (0-32); Blood Urea Nitrogen 17 mg/dL (8-23); Calcium 8.9 mg/dL (8.5-10.5); Carbon Dioxide 23 mmol/L (22-29); Chloride 105 mmol/L (98-107); Creatinine Clr Calc Pharmacy 45.7834; Globulin 2.4 g/dL (1.3-4.6); Glucose 136 mg/dL (65-115); Osmolality Calculated 294 mOsm/kg (285-295); Potassium 3.5 mmol/L (3.5-5.1); Sodium 140 mmol/L (136-145); Thyroid Stimulating Hormone 2.41 uIU/mL (0.27-4.20); Total Bilirubin 0.5 mg/dL (0.15-1.2); Total Protein 6.4 g/dL (6.6-8.7)
[2024-11-08 17:11] VITALS: BP 139/69; PULSE 82; O2SAT 100
== END 2024-11-08 17:12 | disposition home or self-care (01) ==
PROVIDERS: Emergency Provider Emergency Medicine
DX: R55 Syncope and collapse (principal)
CPT/HCPCS: 36415; 71045; 80053; 84443; 85025; 93005; 99285

== ENCOUNTER 2024-11-17 17:35 | Emergency (ER) | payer MEDICARE, SELFPAY ==
--- NOTE | 2024-11-17 17:41 | ECG_ITS ---
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 Measurements Intervals [place] Rate: 90 P: 76 NM: 125 QRS: 70 QRSD: 90 T: 22 QT: 383 QTc: 471 Interpretive Statements SINUS RHYTHM WITH FREQUENT SUPRAVENTRICULAR PREMATURE COMPLEXES ST DEVIATION AND MODERATE T-WAVE ABNORMALITY, CONSIDER INFERIOR ISCHEMIA [-0.1+ mV T-WAVE IN II/aVF] Compared to ECG 11/08/2024 15:56:27 T-wave abnormality now present Possible ischemia now present Baseline artifacts, need to repeat Electronically Signed On 11-17-2024 21:28:34 CDT by Lashanda Hernandez M.D. [id number]
[2024-11-17 17:45] VITALS: BP 146/69; PULSE 86; RESP 18; TEMP 36.7; O2SAT 98; BMI 19.8
--- NOTE | 2024-11-17 17:58 | CTR_ITS ---
PROCEDURE INFORMATION: Exam: CT Cervical Spine Without Contrast Exam date and time: 11/17/2024 6:37 PM Age: 74 years old Clinical indication: Other: Syncope; Additional info: Syncope and collapse, neck pain TECHNIQUE: Imaging protocol: Computed tomography of the cervical spine without contrast. Radiation optimization: All CT scans at this facility use at least one of these dose optimization techniques: automated exposure control; mA and/or kV adjustment per patient size (includes targeted exams where dose is matched to clinical indication); or iterative reconstruction. COMPARISON: CR (CHEST, ) 11/17/2024 6:17 PM RADIATION DOSE METRICS: Total DLP (mGy-cm): 121.08 FINDINGS: Bones: Grade 1 anterolisthesis of C3 on C4 and grade 1 posterior listhesis of C4 on C5. Severe degenerative disc disease at C4-C5. Bony fusion of the right facets at C2-C3. Lungs: Lung apices are normal. Soft tissues: Unremarkable. CT/CT cervical spin wo con* [id number] IMPRESSION: 1. Grade 1 anterolisthesis of C3 on C4 and grade 1 posterior listhesis of C4 on C5. 2. Severe degenerative disc disease at C4-C5. 3. Bony fusion of the right facets at C2-C3.
--- NOTE | 2024-11-17 17:58 | CTR_ITS ---
PROCEDURE INFORMATION: Exam: CT Head Without Contrast Exam date and time: 11/17/2024 6:37 PM Age: 74 years old Clinical indication: Syncope and collapse; Additional info: Syncope, headache TECHNIQUE: Imaging protocol: Computed tomography of the head without contrast. Radiation optimization: All CT scans at this facility use at least one of these dose optimization techniques: automated exposure control; mA and/or kV adjustment per patient size (includes targeted exams where dose is matched to clinical indication); or iterative reconstruction. COMPARISON: CT cervical spin wo con* [id number] 11/17/2024 6:37 PM RADIATION DOSE METRICS: Total DLP (mGy-cm): 929.5 FINDINGS: Brain: Normal. No hemorrhage. Unremarkable white matter. No mass effect. Cerebral ventricles: No ventriculomegaly. Paranasal sinuses: Visualized sinuses are unremarkable. No fluid levels. Mastoid air cells: Visualized mastoid air cells are well aerated. Bones: Unremarkable. No acute fracture. Soft tissues: Unremarkable. CT/CT head wo con* [id number] IMPRESSION: No acute intracranial abnormality.
--- NOTE | 2024-11-17 17:59 | XRR_ITS ---
PROCEDURE INFORMATION: Exam: XR Chest Exam date and time: 11/17/2024 6:17 PM Age: 74 years old Clinical indication: Other: Syncope TECHNIQUE: Imaging protocol: Radiologic exam of the chest. Views: 1 view. COMPARISON: CR XR chest 1V portable [id number] 11/08/2024 3:40 PM FINDINGS: Lungs: Unremarkable. No consolidation. Pleural spaces: Unremarkable. No pleural effusion. No pneumothorax. Heart/Mediastinum: Unremarkable. No cardiomegaly. Bones/joints: Unremarkable. XR/XR chest 1V portable [id number] IMPRESSION: No acute findings.
[2024-11-17] MEDS: sodium chloride 0.9% 1,000 ML 999 ML IV (18:06)
[2024-11-17 18:07] LABS: Basophils # 0.1 10^3/uL (0.0-0.1); Basophils % 1.2 %; Eosinophils # 0.4 10^3/uL (0.0-0.8); Eosinophils % 6.2 %; Hematocrit 36.7 % (36-47); Lymphocytes # 2.3 10^3/uL (0.8-4.8); Lymphocytes % 39.1 %; Mean Corpuscular HGB Conc 33.5 g/dL (30-55); Mean Corpuscular Hemoglobin 30.1 pg (27-33); Mean Corpuscular Volume 89.7 fl (85-98); Mean Platelet Volume 9.5 fL (7.4-10.4); Monocytes # 0.5 10^3/uL (0.2-0.9); Monocytes % 9.1 %; Neutrophils # 2.62 10^3/uL (1.8-7.7); Neutrophils % 44.1 %; Nucleated Red Blood Cells % 0 %; Platelet Count 307 10^3/cmm (157-399); Red Blood Count 4.09 10^6/uL (3.85-5.65); Red Cell Distribution Width 13.6 % (12.1-15.1); White Blood Count 5.94 10^3/uL (3.29-11.43)
[2024-11-17 18:18] VITALS: BP 135/40
[2024-11-17 18:20] VITALS: BP 128/63; BP 131/68; BP 135/40; PULSE 79; PULSE 83; PULSE 91
[2024-11-17 18:20] LABS: Troponin(5th) Baseline 11 ng/L (0-10)
[2024-11-17 18:22] LABS: Alanine Aminotransferase 22 U/L (0-33); Albumin Level 4.3 g/dL (3.5-5.2); Alkaline Phosphatase 307 U/L (35-105); Anion Gap 17.5 (5-19); Aspartate Amino Transferase 24 U/L (0-32); Blood Urea Nitrogen 14 mg/dL (8-23); Calcium 9.3 mg/dL (8.5-10.5); Carbon Dioxide 20 mmol/L (22-29); Chloride 105 mmol/L (98-107); Creatinine Clr Calc Pharmacy 45.7834; Glucose 105 mg/dL (65-115); Osmolality Calculated 289 mOsm/kg (285-295); Potassium 3.5 mmol/L (3.5-5.1); Sodium 139 mmol/L (136-145); Total Bilirubin 0.5 mg/dL (0.15-1.2); Total Protein 6.3 g/dL (6.6-8.7)
--- NOTE | 2024-11-17 18:33 | ED_ITS ---
HPI - Syncope 2 General: Chief Complaint: Syncope Stated Complaint: syncopal episode Time Seen by Provider: 11/17/24 17:36 Source: patient Mode of arrival: EMS Limitations: no limitations History of Present Illness: Patient is a 74-year-old female who is brought in by ambulance for syncopal episode just prior to arrival. Patient seen here in the ED last week for syncopal episode as well, had normal x-ray and lab workup at that time and vitals had remained normal and she was discharged home. Patient states she was standing at work today, eating ice cubes when she suddenly felt herself get hot and then collapsed to the ground. Reports a history of migraines, no other medical history reported. States she does not feel dehydrated as she regularly drinks water. Unknown if she hit her head or lost consciousness, is complaining of a mild headache at this time as well as neck pain. She did not have any chest pain, shortness of breath, palpitations, lightheadedness or dizziness, or any other symptoms prior to the syncopal episode. No history of seizures and there was no reported seizure-like activity. Denies any drug or alcohol use. No medication changes recently. States that she had been standing for a while, there was no preceding positional changes prior to the event. This event was witnessed by coworker, patient notes that she remembers the event and did come to immediately after falling to the ground. At this time has no other complaints other than the headache and neck pain. Vitals were normal including normal blood pressure and normal heart rate. She denies any history of coronary artery disease, STEMI or NSTEMI, or other cardiac issues. MD complaint: collapsed Onset (ago): minute(s) -: second(s) Prodromal symptoms: none Witnessed: Yes - by Bystander Context: standing up Associated symptoms: Reports headache(s); Deny abdominal pain, chest pain, fever(s), lightheadedness or nausea Treatments prior to arrival: none Related Data Home Medications ?Medication ?Instructions ?Recorded ?Confirmed albuterol sulfate 90 mcg/actuation 2 puff inhalation Q 6H PRN 11/08/24 11/08/24 aerosol inhaler Shortness Of Breath Or Wheez ing cholecalciferol (vitamin D3) 125 125 mcg PO DAILY 10/1111/08/24 mcg (5,000 unit) tablet (Vitamin D3) ibuprofen 200 mg tablet (Advil) 800 mg PO Q6H PRN Feve r Or Pain 11/08/24 11/08/24 magnesium 250 mg tablet 250 mg PO DAILY 11/08/24 multivitamin 1 tab PO DAILY 11/08/2410/11 Previous Rx's ?Medication ?Instructions ?Recorded gabapentin 100 mg capsule 100 mg PO .QHS #30 caps 03/11 05/04 montelukast 10 mg tablet 10 mg PO DAILY #30 tabs 03/11 05/04 prednisone 20 mg tablet 60 mg (3 x 20 mg) PO ONCE 5 days 11/17/24 #15 tabs Allergies Allergy/AdvReac Type Severity Reaction Status Date / Time No Known Allergies Allergy Verified 09/15/24 12:10 Review of Systems 2 General: Reports: 10 or more systems reviewed and unremarkable except in HPI and below Const: Denies: fever(s), chills or fatigue Eyes: Denies: change in vision ENMT: Denies: throat pain, ear or mastoid pain or nasal discharge Card: Reports: syncope; Denies: chest pain, palpitations, swelling of feet/ankles or lightheadedness Resp: Denies: dyspnea, productive cough or wheezing GI: Denies: abdominal pain, nausea, vomiting, diarrhea or constipation : Denies: flank pain, difficulty voiding, dysuria or urinary frequency Musc: Reports: neck pain; Denies: back pain or joint pain Skin/Breast: Denies: rash Neuro: Reports: headache(s); Denies: numbness in extremities, weakness in extremities, dizziness, Slurred speech present or seizure-like activity PFSH ED 2 PFSH: Medical History Cellulitis of hand, right Poisoning by wasp sting Maxillary sinusitis Asthma Migraine Surgical History Hx of tubal ligation Family History Father , 82 Family history of premature coronary artery disease Mother , 62 Lung disease Social History Smoking and tobacco/nicotine status: never used tobacco/nicotine Second hand smoke exposure: No Alcohol intake: never Substance/Drug Use: never Lives independently: Yes Marital status: / Current occupational status: employed Current occupation: [employer] Current gender identity: Female Special viola needs: No Physical Exam 2 Const: COMMON NORMALS: no acute distress, patient oriented x3 and no limitations GENERAL APPEARANCE: cooperative, comfortable and well developed NUTRITIONAL APPEARANCE: thin ORIENTATION/CONSCIOUSNESS: Yes awake, Yes oriented to person, Yes oriented to place and Yes oriented to time HENMT: COMMON NORMALS: normocephalic, atraumatic and hearing grossly normal bilaterally HEAD & SCALP: normocephalic and atraumatic; no Reed's sign, no raccoon eyes and no scalp tenderness Eye: COMMON NORMALS: Equal, round and reactive pupils present, EOMs intact bilaterally and conjunctivae normal CONJUNCTIVA: Yes conjunctivae normal P UPIL: Yes Equal, round and reactive pupils present Neck/C-Spine: COMMON NORMALS: full ROM, supple and no JVD OTHER: No cervical spine tenderness Resp: COMMON NORMALS: normal respiratory effort, No retractions, No use of accessory muscles and clear to auscultation bilaterally AUSCULTATION: clear to auscultation bilaterally Cardio: COMMON NORMALS: no JVD, regular rate, regular rhythm, No clicks present (Cardio), No murmurs present (Cardio) and No rub (Cardio) RATE: r egular rate RHYTHM: regular rhythm GI: COMMON NORMALS: Normal to inspection, nondistended, normoactive bowel sounds present, Soft to palpation and non-tender AUSCULTATION: Yes normoactive bowel sounds PALPATION: Yes Soft to palpation RECTAL EXAM: d eferred Back/Pelvis: COMMON NORMALS: thoracic and lumbar spine normal to inspection, no thoracic nor lumbar tenderness and thoraco-lumbar ROM normal Extremity: COMMON NORMALS: normal to inspection, full ROM and capillary refill normal Neuro: COMMON NORMALS: patient oriented x3, CN's II-XII intact bilaterally, moves all extremities, no focal motor deficits and no sensory deficits noted SENSORIUM/ORIENTATION: Yes oriented to person, Yes oriented to place and Yes oriented to time COORDINATION/BALANCE: [id number]-pf-[id number] test normal and iezd-ps-hrqs test normal SPEECH: speech normal MOTOR EXAM: 5/5 motor strength present throughout, Pronator motor function not present, no tremor noted, no asterixis and Motor fasciculations not present COORDINATION: f vstls-uk-hjlx test normal and eejj-rj-xtet test normal Psych: COMMON NORMALS: mental status grossly normal and Normal thought process present THOUGHT PROCESS: Normal thought process present Skin: COMMON NORMALS: no rashes or lesions noted GENERAL SKIN EXAM: no rashes or lesions noted Course 2 Vital Signs: Vital signs: Vital Signs Temperature 98.0 F 11/17/24 17:45 Pulse Rate 88 11/17/24 20:10 Respiratory Rate 18 11/17/24 17:45 Blood Pressure 108/70 11/17/24 20:10 Pulse Oximetry 97 11/17/24 20:10 Oxygen Delivery Me thod Room Air 11/17/24 19:30 MDM - Syncope Medical Decision Making This patient presented by ambulance for syncopal episode, seen here recently for the same issue were had a full normal workup. Her neurological status was intact here on exam, overall the exam was normal. Vitals have remained normal including normal blood pressures. Rechecked labs and chest x-ray, these were all normal which included normal urine drug screen and no signs of infection on urinalysis. Her EKG obtained did not show any acute findings, this was reviewed with physician, specifically no arrhythmias or signs of STEMI. Baseline troponin was unremarkable. Head CT normal, cervical spine CT showing some likely chronic findings however she was reporting some neck pain. Because of this we will refer her to Ortho/spine for further evaluation. Her orthostatic vital signs were also normal. Ultimately unknown what caused the syncopal episode, could be dehydration or potentially related to orthostatic hypotension. Ultimately stable for discharge home, discussed tricked return precautions informed her to follow-up as planned. She agrees to this plan verbalized understanding to return precautions. Lab Data 11/17/24 17:45 11/17/24 17:45 Radiology Impressions Cervical Spine CT 11/17/24 17:58 IMPRESSION: 1. Grade 1 anterolisthesis of C3 on C4 and grade 1 posterior listhesis of C4 on C5. 2. Severe degenerative disc disease at C4-C5. 3. Bony fusion of the right facets at C2-C3. Head CT 11/17/24 17:58 IMPRESSION: No acute intracranial abnormality. Chest X-Ray 11/17/24 17:59 IMPRESSION: No acute findings. Laboratory Results WBC 5.94 10^3/uL (3.29-11.43) 11/17/24 17:45 RBC 4.09 10^6/uL (3.85-5.65) 11/17/24 17:45 Hgb 12.30 g/dL (11.27-16.99) 11/17/24 17:45 Hct 36.7 % (36-47) 11/17/24 17:45 MCV 89.7 fl (85-98) 11/17/24 17:45 MCH 30.1 pg (27-33) 11/17/24 17:45 MCHC 33.5 g/dL (30-55) 11/17/24 17:45 RDW 13.6 % (12.1-15.1) 11/17/24 17:45 Plt Count 307 10^3/cmm (157-399) 11/17/24 17:45 MPV 9.5 fL (7.4-10.4) 11/17/24 17:45 Neut % (Auto) 44.1 % 11/17/24 17:45 Lymph % (Auto) 39.1 % 11/17/24 17:45 Coffey % (Auto) 9.1 % 11/17/24 17:45 Eos % (Auto) 6.2 % 11/17/24 17:45 Baso % (Auto) 1.2 % 11/17/24 17:45 Neut # (Auto) 2.62 10^3/uL (1.8-7.7) 11/17/24 17:45 Lymph # (Auto) 2.3 10^3/uL (0.8-4.8) 11/17/24 17:45 Coffey # (Auto) 0.5 10^3/uL (0.2-0.9) 11/17/24 17:45 Eos # (Auto) 0.4 10^3/uL (0.0-0.8) 11/17/24 17:45 Baso # (Auto) 0.1 10^3/uL (0.0-0.1) 11/17/24 17:45 Nucleated RBC % (auto) 0 % 11/17/24 17:45 Nucleated RBCs # 0.0 /100WBC 11/17/24 17:45 Sodium 139 mmol/L (136-145) 11/17/24 17:45 Potassium 3.5 mmol/L (3.5-5.1) 11/17/24 17:45 Chloride 105 mmol/L (98-107) 11/17/24 17:45 Carbon Dioxide 20 mmol/L (22-29) L 11/17/24 17:45 Anion Gap 17.5 (5-19) 11/17/24 17:45 BUN 14 mg/dL (8-23) 11/17/24 17:45 Creatinine 0.8 mg/dL (0.5-0.9) 11/17/24 17:45 GFR Calculation Not Reportable 11/17/24 17:45 Glucose 105 mg/dL (65-115) 11/17/24 17:45 Calculated Osmolality 289 mOsm/kg (285-295) 11/17/24 17:45 Calcium 9.3 mg/dL (8.5-10.5) 11/17/24 17:45 Magnesium 2.0 mg/dL (1.7-2.3) 11/17/24 17:45 Total Bilirubin 0.5 mg/dL (0.15-1.2) 11/17/24 17:45 AST 24 U/L (0-32) 11/17/24 17:45 ALT 22 U/L (0-33) 11/17/24 17:45 Alkaline Phosphatase 307 U/L (35-105) H 11/17/24 17:45 Troponin T Baseline 11 ng/L (0-10) H 11/17/24 17:45 Troponin T 120 Minute 6.42 ng/L (0-10) 11/17/24 19:19 Delta Troponin T -4.58 ABS# (0-10) L 11/17/24 19:19 Total Protein 6.3 g/dL (6.6-8.7) L 11/17/24 17:45 Albumin 4.3 g/dL (3.5-5.2) 11/17/24 17:45 Globulin 2.0 g/dL (1.3-4.6) 11/17/24 17:45 Urine Color Dark yellow (Yellow) A 11/17/24 18:32 Urine Appearance Clear (CLEAR) 11/17/24 18:32 Urine pH 6 (5-7) 11/17/24 18:32 Ur Specific [place] 1.015 (1.005-1.030) 11/17/24 18:32 Urine Protein 1+ (Negative) H 11/17/24 18:32 Urine Glucose (UA) Norm (Normal) 11/17/24 18:32 Urine Ketones Negative (Negative) 11/17/24 18:32 Urine Blood 2+ (Negative) H 11/17/24 18:32 Urine Nitrate Negative (Negative) 11/17/24 18:32 Urine Bilirubin 1+ (Negative) H 11/17/24 18:32 Urine Urobilinogen 1 mg/dL (Negative) H 11/17/24 18:32 Ur Leukocyte Esterase 1+ (Negative) H 11/17/24 18:32 Urine RBC 0-4 /hpf (0-2) H 11/17/24 18:32 Urine WBC 0-5 /hpf (0-5) 11/17/24 18:32 Ur Squamous Epith Cells 0-5 /hpf (0-5) 11/17/24 18:32 Calcium Oxalate Crystal 10-15 /hpf H 11/17/24 18:32 Amorphous Sediment Not Reportable 11/17/24 18:32 Urine Bacteria Trace /hpf (NONE) 11/17/24 18:32 Hyaline Casts 24.38 /lpf 11/17/24 18:32 Urine Mucus 3+ /hpf 11/17/24 18:32 Urine Opiates Screen Negative ng/mL (Negative) 11/17/24 18:32 Ur Barbiturates Screen Negative ng/mL (Negative) 11/17/24 18:32 Ur Phencyclidine Scrn Negative ng/mL (Negative) 11/17/24 18:32 Ur Amphetamines Screen Negative ng/mL (Negative) 11/17/24 18:32 U Benzodiazepines Scrn Negative ng/mL (Negative) 11/17/24 18:32 Urine Cocaine Screen Negative ng/mL (Negative) 11/17/24 18:32 U Marijuana (THC) Screen Negative ng/mL (Negative) 11/17/24 18:32 All radiology interpretation(s) finalized by discharge Discharge Plan Discharge Patient Disposition: Home Clinical Impression: Cervicalgia Syncope Qualifiers: Syncope type: unspecified Qualified Code(s): R55 - Syncope and collapse Condition: Stable Prescriptions: New prednisone 20 mg tablet 60 mg PO ONCE 5 Days Qty: 15 0RF No Action gabapentin 100 mg capsule 100 mg PO .QHS Qty: 30 4RF montelukast 10 mg tablet 10 mg PO DAILY Qty: 30 4RF multivitamin Tablet 1 tab PO DAILY ibuprofen [Advil] 200 mg Tablet 800 mg PO Q6H PRN (Reason: Fever Or Pain) magnesium 250 mg Tablet 250 mg PO DAILY cholecalciferol (vitamin D3) [Vitamin D3] 125 mcg (5,000 unit) Tablet 125 mcg PO DAILY albuterol sulfate 90 mcg/actuation HFA aerosol inhaler 2 puff INHALATION Q6H PRN (Reason: Shortness Of Breath Or Wheezing) Discharge Orders: Discharge ED (Routine); Ordered 11/17/24 Ordered By: Mello Hernadez Patient Instructions: Syncope (ED) Activity Restrictions/Additional Instructions: Drink plenty of fluids. Care with changing positions. Follow-up with Ortho/spine as we discussed. Take steroids as prescribed. Return with any new or worsening. Follow-up routinely with your regular doctor. Print Language: Czech Coding Level of Care Code ED Product Manufacturing Professional for [facility]
[2024-11-17 18:37] LABS: Add Urine Microscopic? NO
[2024-11-17 18:44] LABS: Hyaline Casts Urine 24.38 /lpf; Squamous Epithelial Cell Urine 0-5 /hpf (0-5); WBC Urine 0-5 /hpf (0-5)
[2024-11-17 18:54] LABS: Amphetamines Screen Urine Negative (Negative); Barbiturates Screen Urine Negative (Negative); Benzodiazepines Screen Urine Negative (Negative); Cocaine Screen Urine Negative (Negative); Opiate Screen Urine Negative (Negative); PCP Screen Urine Negative (Negative); THC Screen Urine Negative (Negative)
[2024-11-17 19:15] LABS: Bilirubin Urine 1+ (Negative); Blood Urine 2+ (Negative); Glucose Urine UA Norm (Normal); Ketones Urine Negative (Negative); Leukocyte Esterase Urine 1+ (Negative); Nitrate Urine Negative (Negative); Protein Urine 1+ (Negative); Specific Gravity, Urine 1.015 (1.005-1.030); UA Slide Review UA Slide Review Perf; Urine Appearance Clear (CLEAR); Urine Color Dark Yellow (Yellow); Urobilinogen Urine 1 mg/dL (Negative); pH Urine 6 (5-7)
[2024-11-17 19:16] LABS: Bacteria Urine TRACE /hpf; Charge for UA Resulting for Rev; RBC Urine 0-4 /hpf (0-2)
[2024-11-17 19:17] LABS: Add Urine Culture? Yes; Mucus Urine 3+ /hpf
[2024-11-17 19:30] VITALS: BP 143/89; PULSE 94; O2SAT 100
--- NOTE | 2024-11-17 19:42 | ECG_ITS ---
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 Measurements Intervals [place] Rate: 88 P: 64 MT: 141 QRS: 41 QRSD: 89 T: 9 QT: 385 QTc: 467 Interpretive Statements SINUS RHYTHM NONSPECIFIC T-WAVE ABNORMALITY Compared to ECG 11/17/2024 17:41:51 Possible ischemia no longer present T-wave abnormality still present Electronically Signed On 11-17-2024 21:29:17 CDT by Lashanda Hernandez M.D. [email or web address]
[2024-11-17 19:58] LABS: Troponin 5 2HR 6.42 ng/L (0-10)
[2024-11-17 19:59] LABS: Troponin 5 2HR Delta -4.58 ABS# (0-10)
[2024-11-17 20:10] VITALS: BP 108/70; PULSE 88; O2SAT 97
--- NOTE | 2024-11-18 07:52 | DCPLANNER ---
messaged ortho for er f/u
== END 2024-11-17 20:11 | disposition home or self-care (01) ==
PROVIDERS: Emergency Provider Physician Assistant
DX: R55 Syncope and collapse (principal); M54.2 Cervicalgia
CPT/HCPCS: 36415; 70450; 71045; 72125; 80053; 80306; 81003; 83735; 84484; 85025; 87086; 93005; 96360; 96361; 99285; J7030

== ENCOUNTER → 2024-11-23 15:18 | Outpatient (BNVA) | payer MEDICARE, SELFPAY | PROVIDERS: Visit Provider Orthopaedic Surgery | DX: M54.2 Cervicalgia (principal) | CPT/HCPCS: 72050; 99204 ==

== ENCOUNTER → 2024-11-25 10:04 | Outpatient (BNVA) | payer MEDICARE, SELFPAY | PROVIDERS: PCP Nurse Practitioner Family; Visit Provider Nurse Practitioner Family | DX: R55 Syncope and collapse (principal); R74.8 Abnormal levels of other serum enzymes; T63.461A Toxic effect of venom of wasps, accidental (unintentional), initial encounter | CPT/HCPCS: 80053; 82977 ==

== ENCOUNTER → 2025-01-06 10:53 | Outpatient (BNVA) | payer MEDICARE, SELFPAY | PROVIDERS: PCP Nurse Practitioner Family; Visit Provider Orthopaedic Surgery | DX: M54.2 Cervicalgia (principal) | CPT/HCPCS: 99213 ==

== ENCOUNTER → 2025-01-20 11:06 | Outpatient (BNVA) | payer MEDICARE, SELFPAY | PROVIDERS: PCP Nurse Practitioner Family; Visit Provider Nurse Practitioner Family | DX: M54.2 Cervicalgia (principal) | CPT/HCPCS: 99214 ==

== ENCOUNTER → 2025-01-27 12:52 | Outpatient (BNVA) | payer MEDICARE, SELFPAY | PROVIDERS: PCP Nurse Practitioner Family; Visit Provider Nurse Practitioner Family | DX: M79.18 Myalgia, other site (principal); M54.2 Cervicalgia | CPT/HCPCS: 20553; 99214; J1010; J3490 ==

== ENCOUNTER → 2025-02-17 13:02 | Outpatient (BNVA) | payer MEDICARE, SELFPAY | PROVIDERS: PCP Nurse Practitioner Family; Visit Provider Nurse Practitioner Family | DX: M50.321 Other cervical disc degeneration at C4-C5 level (principal); M43.22 Fusion of spine, cervical region | CPT/HCPCS: 99214 ==

== ENCOUNTER → 2025-04-04 13:38 | Outpatient (BNVA) | payer MEDICARE, SELFPAY | PROVIDERS: PCP Nurse Practitioner Family; Visit Provider Nurse Practitioner Family | DX: M54.16 Radiculopathy, lumbar region (principal); M54.2 Cervicalgia | CPT/HCPCS: 99214 ==

== ENCOUNTER → 2025-05-09 14:26 | Outpatient (BNVA) | payer MEDICARE, SELFPAY | PROVIDERS: PCP Nurse Practitioner Family; Visit Provider Nurse Practitioner Family | DX: M54.16 Radiculopathy, lumbar region (principal); M54.2 Cervicalgia | CPT/HCPCS: 99214 ==

== ENCOUNTER → 2025-05-23 13:42 | Outpatient (BNVA) | payer MEDICARE, SELFPAY | PROVIDERS: PCP Nurse Practitioner Family; Visit Provider Nurse Practitioner Family | DX: M79.18 Myalgia, other site (principal); M54.16 Radiculopathy, lumbar region; M54.2 Cervicalgia; G89.29 Other chronic pain | CPT/HCPCS: 20550; 20553; 99214; J1010; J3490 ==

== ENCOUNTER → 2025-07-04 12:52 | Outpatient (BNVA) | payer MEDICARE, SELFPAY | PROVIDERS: PCP Nurse Practitioner Family; Visit Provider Nurse Practitioner Family | DX: M54.2 Cervicalgia (principal) | CPT/HCPCS: 99214 ==